=== PATIENT | male | born 1930 | race Caucasian/White ===

== ENCOUNTER 2016-11-20 06:27 | Inpatient (IN) | payer OTHER ==
--- NOTE | 2016-11-02 12:50 | HISTORY & PHYSICAL EXAMINATION ---
DATE OF ADMISSION: 11/20/2016 PROCEDURE: Right total knee replacement. HISTORY OF PRESENT ILLNESS: Prakash is an 86-year-old male who presents for preoperative evaluation prior to right knee replacement. He was initially scheduled to have his right knee replacement done in September 2015, however, sustained a mini stroke at that point and surgery had to be postponed. At this point in time he has been seen by his family physician as well as neurology and has been cleared for his upcoming surgery as long as bridged with Lovenox and Coumadin. He states he has been having pain in this knee for several years now, which has gradually worsened, he has tried previous cortisone injections as well as viscosupplementation without relief. He has done physical therapy, taken oral anti-inflammatories including Advil and Celebrex, which is now limited due to the Coumadin. At this point in time he has failed conservative measures and after obtaining medical and neurological clearance the patient would like to proceed with a right knee replacement. PAST MEDICAL HISTORY: 1. Cardiovascular disease. 2. BPH. 3. Allergic rhinitis. 4. GERD. 5. Dry eye syndrome. 6. History of arterial stenosis. 7. Spinal stenosis. 8. Diverticulitis. 9. Irritable bowel syndrome. 10. Hypertension. 11. Anxiety. 12. History of CVA. ALLERGIES: 1. TYLENOL WITH CODEINE, CAUSES HIM TO FEEL LIKE HE IS CLIMBING ON THE FISHMAN. CURRENT MEDICATIONS: 1. Lorazepam 1 mg 1/2-1 tablet at bedtime as needed. 2. Atorvastatin 10 mg daily. 3. Fluoxetine 40 mg daily. 4. Pantoprazole 40 mg daily. 5. Coumadin 4 mg on Saturday, Saturday, Saturday, Saturday and Saturday; 2 mg on Tuesdays and . 6. Polytrim 1 drop right eye 4 times a day. 7. [place] 10/325 one tablet every 6 hours as needed for pain. PAST SURGICAL HISTORY: 1. History of bilateral shoulder arthroscopies in the past. 2. Hemorrhoidectomy. FAMILY HISTORY: Noncontributory. SOCIAL HISTORY: The patient is retired and lives in a 2-story home with his . Denies a history of smoking or tobacco use. REVIEW OF SYSTEMS: Otherwise negative. Please see HPI for pertinent positives. PHYSICAL EXAMINATION: GENERAL: Pleasant, cooperative 86-year-old male in no acute distress, alert and oriented x3. He is 5 foot 6, weight 190 pounds. VITAL SIGNS: Blood pressure is 116/68, pulse 76, O2 sat 94%. HEENT: Normocephalic, atraumatic. CARDIAC: Regular rate and rhythm. No murmurs or gallops appreciated. Resting pulse 76 beats per minute. LUNGS: Clear to auscultation without rales or wheezes bilaterally. ABDOMEN: Soft, nontender. Bowel sounds present. EXTREMITIES: Attention to his right lower extremity is neurovascularly intact. Calves are soft and nontender. DP pulse +2. Demonstrates good quad tone. Straight leg raise without lag. There is no erythema or warmth. Has mild effusion. Range of motion is 0/5/110. Positive crepitation with motion. Knee is ligamentously stable. IMAGING: Reviewed of his right knee shows findings consistent with end-stage DJD with joint space narrowing, subchondral sclerosis and osteophyte formation noted. EKG performed 11/22/2015 showed sinus rhythm, low voltage in precordial leads with a rate of 71 beats per minute. IMPRESSION: 1. Right knee degenerative joint disease. 2. History of cerebrovascular accident, transient ischemic attacks. He is stable on Coumadin, would need Lovenox bridging for right total knee arthroplasty and has been cleared by neurology if they proceed with surgery. 3. Hypertension. 4. Chronic kidney disease, stage 3, advised to avoid nonsteroidal antiinflammatory drugs and has upcoming appointment with nephrology. 5. History of prostate cancer. 6. Gastroesophageal reflux disease. 7. High cholesterol. PLAN: Further care discussed with patient. At this point in time, has failed conservative measures and would like to proceed with a right knee replacement. Discussed all the risks and benefits of the procedure, he would like to proceed. Will likely need rehab versus group home facility upon discharge. Will discuss with social work specialist once inpatient.
--- NOTE | 2016-11-02 14:01 | PAT Medication Instructions ---
Service Date Nov 02, 2016. Current Home Medication List Artificial Tears (Artificial Tears), 1-2 DROPS OP TID Atorvastatin (Lipitor), 10 MG PO HS Fluoxetine (Prozac), 40 MG PO QAM Warfarin Sod (Jantoven), 4 MG PO QPM Warfarin Sod (Jantoven), 2 MG PO 2XWK [Macular ] Medication Instructions For Your Scheduled Surgery - Check with surgeon/prescribing physician for instructions: Warfarin Sod (Jantoven), 4 MG PO QPM Warfarin Sod (Jantoven), 2 MG PO 2XWK - Take the following medications the morning of surgery with a sip of water: Fluoxetine (Prozac), 40 MG PO QAM Artificial Tears (Artificial Tears), 1-2 DROPS OP TID - Take the following medications as scheduled the night before surgery: Atorvastatin (Lipitor), 10 MG PO HS Artificial Tears (Artificial Tears), 1-2 DROPS OP TID If you have any questions please call us at [phone] or [phone] or [phone]
[2016-11-02 14:43] LABS: BASO % 0.1 %; BASO ABS # 0.01 K/uL (0-0.2); COMPLETE YES; EOS % 2.1 %; HEMATOCRIT 38.3 % (42-52); IG% 0.3 %; LYMPH % 9.6 %; LYMPH ABS # 0.68 K/uL (1.2-3.4); MEAN CELL VOLUME 95.5 fL (80-100); MEAN CORPUSCULAR HEMOGLOBIN 31.9 pg (25-34); MEAN CORPUSCULAR HGB CONC 33.4 g/dl (32-36); NEUT % 74.9 %; PLATELET COUNT 214 K/uL (130-400); RED BLOOD COUNT 4.01 M/uL (4.7-6.1); WHITE BLOOD COUNT 7.08 K/uL (4.8-10.8)
[2016-11-02 14:52] LABS: INR 1.8 (0.9-1.1); PARTIAL THROMBOPLASTIN RATIO 1.6; PROTHROMBIN TIME (PATIENT) 19.3 SECONDS (9.0-12.0)
[2016-11-02 15:00] LABS: BUN/CREATININE RATIO 17.2 (10-20); CREATININE 1.4 mg/dl (0.60-1.40); POTASSIUM 4.1 mmol/L (3.5-5.1)
[2016-11-02 15:07] LABS: CALCIUM 8.6 mg/dl (8.5-10.1)
[2016-11-02 15:11] LABS: URINE APPEARANCE CLEAR (CLEAR); URINE BILIRUBIN NEG (NEG); URINE COLOR YELLOW; URINE NITRITE NEG (NEG); URINE SPECIFIC GRAVITY 1.018 (1.000-1.030); UROBILINOGEN NEG (NEG)
[2016-11-02 15:27] LABS: MANUAL MICROSCOPIC REQUIRED? NO; REVIEW REQ? NO
[2016-11-02 15:47] LABS: ESTIMATED AVERAGE GLUCOSE 151 mg/dl; HA1C FLAG Normal (Normal)
[~2016-11-20] VITALS: Ht 165.1 cm; Wt 82.3 kg
[2016-11-20] VITALS (9 sets, daily range): BP systolic 97–138; BP diastolic 53–82; PULSE 58–83; TEMP 36.2–37; O2SAT 92–97; Ht 165.1 cm; Wt 82.3 kg
[~2016-11-20 06:27] MED LIST: ACETAMINOPHEN 500 MG TAB PO SCH; ATOR10TA82 PO; CEFAZOLIN 2000 MG/60 ML D5W 60 ML IV SCH; CeleBREX 200 MG CAP PO SCH; DEXAMETHASONE 4 MG TAB PO SCH; FAMOTIDINE 20 MG TAB PO SCH; FLUO40CA8 PO; GABAPENTIN 300 MG CAP PO SCH; LACTATED RINGER'S 1000ML 1,000 ML IV SCH; LACTATED RINGER'S 1000ML IV SCH; METOCLOPRAMIDE HCL 10 MG TAB PO SCH; POLY99.02 OP; ROPIVACAINE 5MG/ML 30 ML 150 MG, BUPIVACAINE/EPINEPHR 0.5% MPF 30 ML, KETOROLAC TROMETH... INFIL SCH; WARF4TAB8 PO
--- NOTE | 2016-11-20 06:53 | History & Physical Bridge Note ---
H&P Re-Evaluation Bridge Note: I have examined the patient, reviewed the History & Physical and in the interval since the performance of the History & Physical I have noted the following changes of clinical significance: No changes noted
[2016-11-20] MEDS ORDERED: BUPIVACAINE 0.25% 30 ML VIAL ONE (07:02)
[2016-11-20] MEDS ORDERED: BUPIVACAINE 0.5 % 5 MG/1 ML PF 10ML VIAL ONE (07:02)
[2016-11-20] MEDS ORDERED: POVIDONE-IODINE OP SOLN 30 ML BTL ONE (07:10)
[2016-11-20] MEDS ORDERED: BACITRACIN 50000 UNIT VIAL ONE (07:10)
[2016-11-20] MEDS ORDERED: ORTHO JOINT ANESTHETIC ONE (07:10)
[2016-11-20] MEDS ORDERED: MIDAZOLAM HCL 1 MG/ML 2ML VIAL ONE (07:12)
[2016-11-20] MEDS ORDERED: FENTANYL CITRATE INJ 50 MCG/1 ML 2 ML VIAL ONE (07:13)
[2016-11-20 07:31] LABS: PROTHROMBIN TIME (PATIENT) 10.5 SECONDS (9.0-12.0)
[2016-11-20] MEDS ORDERED: LACTATED RINGER'S 1000ML 1,000 ML IV PRN (07:38)
[2016-11-20] MEDS ORDERED: ONDANSETRON INJ 2 MG/ML 2 ML VIAL IV PRN ×2 (07:45→10:00)
[2016-11-20] MEDS ORDERED: FENTANYL CITRATE INJ 50 MCG/1 ML 2 ML VIAL IV PRN (07:45)
[2016-11-20] MEDS ORDERED: PHENYLEPHRINE 100MCG/ML 5ML SYR ONE (07:58)
[2016-11-20] MEDS ORDERED: EpHEDrine SULFATE 50MG/5ML SYR ONE (08:41)
--- NOTE | 2016-11-20 09:22 | [facility] Post Operative Brief Note ---
Immediate Operative Summary Operative Date Nov 20, 2016. Pre-Operative Diagnosis Right knee degenerative joint disease Post-Operative Diagnosis Right knee degenerative joint disease Procedure(s) Performed Right total knee arthroplasty Surgeon Dr. Morfin Therapy Administrative Assistant Surgeon(s) Wil Lundy PA-C Estimated Blood Loss 5ml Findings severe djd rt knee Specimens A. Right knee bone and tissue Complication(s) None Disposition Recovery Room / PACU
--- NOTE | 2016-11-20 09:55 | OPERATIVE REPORT ---
DATE OF OPERATION: 11/20/2016 PREOPERATIVE DIAGNOSIS: Severe end-stage tricompartmental degenerative joint disease, right knee. POSTOPERATIVE DIAGNOSIS: Same. PROCEDURE: Right total knee arthroplasty utilizing Reyes & Nephew Journey II nonblock total knee arthroplasty, size 7 femur, 7 tibia, 9 poly, and 35 oval patella. SURGEON: Dr. Yaakov Morfin. WATER ANALYST: Wil Lundy, who was necessary for prepping, draping, retraction, wound closure of deep fascia, subQ and skin and was necessary for the case. COMPLICATIONS: None. TOURNIQUET TIME: 45 minutes. ESTIMATED BLOOD LOSS: 5 mL. HISTORY: The patient presents as a very pleasant 86-year-old white male being seen and evaluated with complaints of severe endstage DJD about his right knee. He has failed attempts of conservative management including injections, anti-inflammatories, relative rest, activity modification, and bracing. After thorough discussion regarding risks and complications, decision was made to proceed forward with total knee arthroplasty. DESCRIPTION OF PROCEDURE: The patient was properly prepped and draped in supine position for total knee arthroplasty after identifying the appropriate surgical site. An anterior midline incision was made through the subcutaneous tissues down to the region of the extensor mechanism. A medial parapatellar incision was subsequently made. Meticulous hemostasis was obtained and performed at all times. The patella having been subluxed lateralward, medial and lateral meniscal remnants were excised. The patellar cut was then initially made and was sized to the appropriate size. After subluxing the tibia forward the appropriate meniscal fragments having been removed the distal femur was then cut first utilizing a Reyes and Nephew block. The distal femoral cuts and chamfer cuts were all made under direct visualization and the proximal tibial osteotomy cut was also made utilizing Reyes and Nephew blocks and checked with an extramedullary guide. The appropriate trial components on the femur and tibia were placed. Appropriate trial spacers were used to check flexion and extension gaps. With flexion and extension gaps being equal, the components were then subsequently after thorough irrigation and debridement lavage components were then subsequently cemented in the following order: femur, tibia and patella. Exparel was used for intraoperative anesthesia, the medial parapatellar incision was closed utilizing #1 Vicryl, subQ was closed with 2-0 Vicryl, skin was closed with skin clips. A sterile compression dressing was placed. The patient was taken to recovery room in stable condition. Due to the complex nature of the procedure, the entire surgery was performed with the operational assistance of Wil Lundy PA-C. The daycare assistant, under direct supervision, was involved in the actual performance of all aspects of the surgical procedure including hemostasis, tissue retraction and incision, instrument management, patient positioning, and wound closure. I attest to the content of the Intraoperative Record and any orders documented therein. Any exception s are noted below.
[2016-11-20] MEDS ORDERED: TRAMADOL HCL 50 MG TAB PO PRN (10:00)
[2016-11-20] MEDS ORDERED: OXYCODONE HCL IR 5 MG TAB (IMMEDIATE RELEASE) PO PRN (10:00)
[2016-11-20] MEDS ORDERED: BISACODYL 10 MG SUPP PR PRN (10:00)
[2016-11-20] MEDS ORDERED: ALUMINUM/MAGNESIUM/SIMETH (MAALOX MAX) 30 ML UDC PO PRN (10:00)
[2016-11-20] MEDS ORDERED: MoRPHine SULFATE 2 MG/ML CARP IV PRN (10:00)
[2016-11-20] MEDS ORDERED: MAGNESIUM HYDROXIDE SUSP 30 ML UDC PO PRN (10:00)
[2016-11-20] MEDS ORDERED: TAMSULOSIN HCL 0.4 MG CAP PO PRN (10:00)
--- NOTE | 2016-11-20 10:30 | DIAGNOSTIC IMAGING REPORT ---
PORTABLE RIGHT KNEE 2 VIEWS CLINICAL HISTORY: Postop examination COMPARISON: None. DISCUSSION: There are postsurgical changes of a total right knee arthroplasty and patellar resurfacing. The femoral and tibial components appear well seated. Overlying surgical drains are evident. There is air in the soft tissues consistent with recent surgery. IMPRESSION: Postsurgical changes of a total right knee arthroplasty. Electronically signed by: Real Biggs M.D. 11/20/2016 10:29 AM Dictated Date/Time: 11/20/2016 10:28 AM
--- NOTE | 2016-11-20 10:51 | Anesthesiology Progress Note ---
Anesthesia Post Op Note Date & Time Nov 20, 2016 at 10:50 Vital Signs Pain Intensity: 0 Vital Signs Past 12 Hours Date Time Temp Pulse Resp B/P (MAP) Pulse Ox O2 Delivery O2 Flow Rate FiO2 11/20/16 10:35 66 16 114/70 95 Nasal Cannula 2 11/20/16 10:25 36.3 59 16 116/69 94 Nasal Cannula 2 11/20/16 10:15 59 16 112/70 100 Nasal Cannula 2 11/20/16 10:05 58 15 120/64 100 Mask 8 11/20/16 09:57 36 62 16 107/64 100 Mask 8 11/20/16 06:57 37 83 18 138/82 93 Room Air Notes Mental Status: alert / awake / arousable, participated in evaluation Pt Amnestic to Procedure: Yes Nausea / Vomiting: adequately controlled Pain: adequately controlled Airway Patency, RR, SpO2: stable & adequate BP & HR: stable & adequate Hydration State: stable & adequate Neuraxial Anesthesia: was administered, sensory block is resolving Anesthetic Complications: no major complications apparent
[2016-11-20] MEDS: D5W AND 1/2NSS + 20MEQ KCL 1,000 ML IV SCH ×2 (11:33→21:12)
[2016-11-20] MEDS: FERROUS GLUCONATE 324 MG TAB PO SCH ×2 (12:47→17:53)
[2016-11-20] MEDS: ARTIFICIAL TEARS OP SOLN OP SCH ×4 (13:45→21:12)
[2016-11-20] MEDS: ACETAMINOPHEN 500 MG TAB PO SCH ×2 (13:45→21:14)
[2016-11-20] MEDS: CEFAZOLIN IV 2,000 MG in DEXTROSE 5% 50ML 50 ML IV SCH (15:12)
[2016-11-20] MEDS ORDERED: WARFARIN SOD 5 MG TAB PO ONE (16:00)
[2016-11-20] MEDS: SENNA 8.6 MG TAB PO SCH (21:00)
[2016-11-20] MEDS: ATORVASTATIN 10 MG TAB PO SCH (21:12)
[2016-11-20] MEDS: DOCUSATE SODIUM 100 MG CAP PO SCH (21:13)
[2016-11-20] MEDS ORDERED: NURSING VERBAL MED ORDER ONE (22:30)
[2016-11-20] MEDS: FLUOXETINE HCL 20 MG CAP PO SCH (22:42)
[2016-11-21] MEDS: CEFAZOLIN IV 2,000 MG in DEXTROSE 5% 50ML 50 ML IV SCH ×2
[2016-11-21 04:00] VITALS: BP 109/60; PULSE 63; TEMP 36.4; O2SAT 95
[2016-11-21] MEDS: ACETAMINOPHEN 500 MG TAB PO SCH ×3 (05:12→20:36)
[2016-11-21 06:45] LABS: HEMATOCRIT 26.2 % (42-52); MEAN CELL VOLUME 93.9 fL (80-100); MEAN CORPUSCULAR HGB CONC 35.1 g/dl (32-36); PLATELET COUNT 169 K/uL (130-400); RED BLOOD COUNT 2.79 M/uL (4.7-6.1)
[2016-11-21 06:52] LABS: PROTHROMBIN TIME (PATIENT) 11.2 SECONDS (9.0-12.0)
[2016-11-21 07:21] LABS: BUN/CREATININE RATIO 17.8 (10-20); CALCIUM 7.6 mg/dl (8.5-10.1); POTASSIUM 4.5 mmol/L (3.5-5.1)
[2016-11-21] MEDS: D5W AND 1/2NSS + 20MEQ KCL 1,000 ML IV SCH (07:46)
[2016-11-21 07:53] VITALS: BP 110/66; PULSE 65; TEMP 36.6; O2SAT 94
--- NOTE | 2016-11-21 07:53 | Orthopedic Progress Note ---
Orthopedic Progress Note Date of Service Nov 21, 2016. Subjective Post OP Day: 1 Reports: feeling well, Denies: chest pain, SOB, nausea / vomiting, light headedness, calf pain Additional Notes: Pt very hard of hearing. No complaints. States he's been up to the BR with help several times during the night. Pain controlled currently. Objective calves soft nontender, N/V intact, dressing C/D/I, A&O x3, toes mobile Date Time Temp Pulse Resp B/P (MAP) Pulse Ox O2 Delivery O2 Flow Rate FiO2 11/21/16 04:00 36.4 63 18 109/60 (76) 95 Nasal Cannula 2.0 11/21/16 00:04 Room Air 11/20/16 22:55 36.6 64 18 103/53 (70) 96 Nasal Cannula 2.0 11/20/16 19:35 36.5 66 16 97/60 (72) 94 Nasal Cannula 3.0 11/20/16 15:01 36.2 65 18 99/62 (74) 95 Nasal Cannula 2.5 11/20/16 15:00 Nasal Cannula 2.0 11/20/16 13:54 67 16 100/62 (75) 96 Nasal Cannula 2.0 11/20/16 12:46 66 16 116/71 (86) 92 Nasal Cannula 2.0 11/20/16 11:50 58 16 100/62 (75) 97 Nasal Cannula 2.0 11/20/16 11:17 59 17 100/58 (72) 93 Nasal Cannula 3.0 11/20/16 10:50 36.5 62 18 107/65 (79) 97 Nasal Cannula 2.0 11/20/16 10:50 97 Nasal Cannula 2.0 11/20/16 10:50 Nasal Cannula 2.0 11/20/16 10:35 66 16 114/70 95 Nasal Cannula 2 11/20/16 10:25 36.3 59 16 116/69 94 Nasal Cannula 2 11/20/16 10:15 59 16 112/70 100 Nasal Cannula 2 11/20/16 10:05 58 15 120/64 100 Mask 8 11/20/16 09:57 36 62 16 107/64 100 Mask 8 Laboratory Results 24 Hours: Test 11/21/16 06:26 Hematocrit 26.2 % Hemoglobin 9.2 g/dL Prothromb Time International Ratio 1.0 Prothrombin Time 11.2 SECONDS Assessment & Plan Assessment: POD 1 s/p Right TKA Increase in BUN/Creat PAST MEDICAL HISTORY: 1. Cardiovascular disease. 2. BPH. 3. Allergic rhinitis. 4. GERD. 5. Dry eye syndrome. 6. History of arterial stenosis. 7. Spinal stenosis. 8. Diverticulitis. 9. Irritable bowel syndrome. 10. Hypertension. 11. Anxiety. 12. History of CVA. Plan: Continue IV fluids for now. Follow BMP PT/OT Planning for OPPT vs HH? Will need to discuss further with pt and family. Inhouse Planning Pain Management: Ultram, Morphine, PO Tylenol, Oxy IR DVT Prophylaxis: TEDs, SCDs, Coumadin Discharge Planning Discharge Planning: uncertain Pain Management: PO Tylenol, Oxy IR DVT Prophylaxis: TEDs, Coumadin Therapy: Physical Therapy
[2016-11-21 08:06] VITALS: O2SAT 94
--- NOTE | 2016-11-21 08:39 | Clinical Documentation Query ---
CLINICAL DOCUMENTATION QUERY Dr. HARRINGTON, In your clinical opinion is this patient being managed for: ( ) Acute kidney injury ( x ) Other explanation of clinical findings (Please Explain)chronic kidney disease ( ) Unable to determine (Please Define) ( ) Need to Discuss ( ) Not Agree The medical record reflects the following clinical findings, treatment, and risk factors. Clinical Indicators: 86 yo male presenting with R knee DJD and noted to have Chronic Kidney disease stage III on H/P. Baseline Cr 1.4 on preop labs and has risen to Cr 2.0. Pt noted to have hemovac drainage of 1120 cc and slight hypotension with lowest BP 97/60. Treatment: monitor PRP's, continue IV fluids, I/O Risk Factors: age, preexisting CKD stage III, hemovac blood loss, hypotension, hx of HTN Acute Kidney Injury is defined as any of the following: o Increase in SCr by (>/=) 0.3 mg/dl within 48 hours; or o Increase in SCr to (>/=)1.5 times baseline, which is known or presumed to have occurred within the prior 7 days; or o Urine volume <0.5 ml/kg/h for 6 hours. Please clarify and document your clinical opinion in the progress notes and discharge summary. Terms such as "probable", "suspected", "likely", "questionable", "possible", or "still to be ruled out" are acceptable. IF IN AGREEMENT, YOU MUST DOCUMENT ABOVE DIAGNOSTIC STATEMENT IN DAILY PROGRESS NOTES AND DISCHARGE SUMMARY. This document is not part of the patient's record. Thank You, Sejal De La O, JONAS [phone]
--- NOTE | 2016-11-21 08:41 | Clinical Documentation Query ---
CLINICAL DOCUMENTATION QUERY Dr. TAYLOR, In your clinical opinion is this patient being managed for: ( ) Acute kidney injury ( ) Other explanation of clinical findings (Please Explain) ( ) Unable to determine (Please Define) ( ) Need to Discuss ( ) Not Agree The medical record reflects the following clinical findings, treatment, and risk factors. Clinical Indicators: 86 yo male presenting with R knee DJD and noted to have Chronic Kidney disease stage III on H/P. Baseline Cr 1.4 on preop labs and has risen to Cr 2.0. Pt noted to have hemovac drainage of 1120 cc and slight hypotension with lowest BP 97/60. Treatment: monitor PRP's, continue IV fluids, I/O Risk Factors: age, preexisting CKD stage III, hemovac blood loss, hypotension, hx of HTN Acute Kidney Injury is defined as any of the following: o Increase in SCr by (>/=) 0.3 mg/dl within 48 hours; or o Increase in SCr to (>/=)1.5 times baseline, which is known or presumed to have occurred within the prior 7 days; or o Urine volume <0.5 ml/kg/h for 6 hours. Please clarify and document your clinical opinion in the progress notes and discharge summary. Terms such as "probable", "suspected", "likely", "questionable", "possible", or "still to be ruled out" are acceptable. IF IN AGREEMENT, YOU MUST DOCUMENT ABOVE DIAGNOSTIC STATEMENT IN DAILY PROGRESS NOTES AND DISCHARGE SUMMARY. This document is not part of the patient's record. Thank You, Sejal De La O, JONAS [phone]
[2016-11-21] MEDS: ARTIFICIAL TEARS OP SOLN OP SCH ×6 (08:42→20:36)
[2016-11-21] MEDS: FERROUS GLUCONATE 324 MG TAB PO SCH ×3 (08:42→18:37)
[2016-11-21] MEDS: MULTIVITAMIN TAB PO SCH (08:43)
[2016-11-21] MEDS: PANTOprazole SOD 40 MG TAB PO SCH (08:43)
[2016-11-21] MEDS: DOCUSATE SODIUM 100 MG CAP PO SCH ×2 (08:43→20:36)
[2016-11-21] MEDS ORDERED: FLUOXETINE HCL 20 MG CAP PO SCH (09:00)
[2016-11-21 11:33] VITALS: BP 120/66; PULSE 69; TEMP 36.4; O2SAT 92
--- NOTE | 2016-11-21 13:40 | Discharge Instructions ---
Discharge Instructions Date of Service Nov 21, 2016. Admission Reason for Admission: Right Knee Arthritis Discharge Discharge Diagnosis / Problem: right total knee replacement Discharge Goals Goal(s): Decrease discomfort, Improve function, Increase independence Activity Recommendations Activity Limitations: as noted below Weightbearing Status: Right weightbearing (as tolerated) . Instructions / Follow-Up Instructions / Follow-Up ACTIVITY RECOMMENDATIONS: SELF CARE INSTRUCTIONS AFTER TOTAL KNEE REPLACEMENT A. You may need to continue a physical therapy program after discharge from the hospital. There are several options available to you. Your doctor will assist you in selecting the best one for you. 1. An out-patient facility 2 to 3 times a week for therapy or home therapy. 2. Continue working on all exercises taught to you in the hospital. Your goals should be to increase bending of your knee to 90 degrees and beyond and to fully straighten your knee. B. You may progress at your own pace from walking with a walker or crutches to a cane; then to no assistive devices. C. Make walking a part of your daily routine. Be up as much as comfortable with rest periods throughout the day. Rest with leg elevation is very important. Use the ice wrap frequently for the first 3-4 weeks. D. There are no restrictions on activities. You may ride in a car, shop, participate in inspector final assembly electrical and all social activities. E. Wear the long elastic stockings (CHAVEZ hose) 20 hours a day for 2 weeks after surgery. They can be removed several times a day for laundering and for a bath. F. You may shower, no tub baths until cleared by your doctor. SPECIAL CARE INSTRUCTIONS: VERY IMPORTANT TO READ AND REVIEW A. There are a few signs you need to watch for after you are home. Call [facility] if you notice any of the followin. Increased severe knee pain. Some pain is expected especially when you exercise. 2. Increased swelling in your leg or knee; pain or swelling of the calf muscle in either lower leg. 3. Any fluid drainage from the incision. 4. Shortness of breath or chest pain. B. Please call [facility] at if you have any concerns or questions about your operation or recovery. The doctor or his nurse will return your call promptly. C. You must take antibiotics before dental work, bladder, bowel or other surgery. Your doctor will provide you with a permanent care to carry describing this precaution. IMPORTANT: * REMEMBER TO TAKE ASPIRIN, 81 MG, TWICE DAILY FOR 4 WEEKS UNLESS OTHERWISE DIRECTED. THIS IS YOUR BLOOD THINNER. * HIGH RISK PATIENTS MAY BE PRESCRIBED A STRONGER BLOOD THINNER. THIS WILL BE PROVIDED AT DISCHARGE. * CALL IF INCREASED PAIN, REDNESS, DRAINAGE OR FEVER GREATER THAT 101. * WEAR CHAVEZ HOSE 20 HOURS PER DAY FOR 2 WEEKS. * YOU MAY HAVE A LARGE BAND-AID LIKE DRESSING (SILVERON). THIS WILL REMAIN ON YOUR INCISION FOR 7 DAYS, THEN CAN BE REMOVED. IF INCISION IS LEAKING THROUGH DRESSING, CALL THE OFFICE . DERMABOND Prineo- This is a mesh tape dressing that is covered with glue. It should remain in place until the incision is properly healed, usually 10-14 days. This dressing is designed to naturally slough off. You may trim the excess mesh tape as it peels off. Incision may be briefly wet in a shower. Dry immediately by blotting with a clean, dry towel. Do not bath or swim until instructed by your doctor. Do not scratch, rub, or pick at the dressing. Do not apply any topical ointments or lotions until dressing is completely removed and/or instructed by your doctor. There may be a small piece of suture material at one end of your incision. Do not pull or trim this. If it is bothersome or catching on clothing, you may cover it with a band-aid. Prevena- This is a large suction dressing covering your incision. This will help pull any excess drainage from the wound and allow your incision to heal properly. You may shower with this if you can keep the unit outside of the shower. If any bleeding or leakage is noted please call your doctor's office. This will remain on your incision for 7 days and then should be removed. This can be done yourself or by the home nursing staff if applicable. The entire unit is disposable once removed. Once removed, keep incision clean and dry. If redness or drainage is noted, please call your surgeon. FOLLOW UP VISIT: If appointment is not already scheduled: Please call [facility] to make a follow-up appointment for 2 weeks after your surgery at . Current Hospital Diet Patient's current hospital diet: Regular Diet Discharge Diet Recommended Diet: Regular Diet Procedures Procedures Performed: Right total knee arthroplasty Pending Studies Studies pending at discharge: no Laboratory Results Hemoglobin A1c Test 11/02/16 14:14 Range/Units Estimated Average Glucose 151 mg/dl Hemoglobin A1c 6.9 H 4.5-5.6 % Medical Emergencies . Who to Call and When: Medical Emergencies: If at any time you feel your situation is an emergency, please call 911 immediately. . Non-Emergent Contact Non-Emergency issues call your: Primary Care Provider, Surgeon . "Provider Documentation" section prepared by Houston Meng. . VTE Core Measure Inpt VTE Proph given/why not?: Sharlene Shields, SCD's [place] Drug Monitoring Program Search Results: patient reviewed within database, no issues identified
[2016-11-21 15:41] VITALS: BP 93/55; PULSE 74; TEMP 36.7; O2SAT 93
[2016-11-21] MEDS ORDERED: WARFARIN SOD 5 MG TAB PO SCH (16:00)
[2016-11-21] MEDS ORDERED: NURSING VERBAL MED ORDER ONE (18:30)
[2016-11-21] MEDS: SODIUM CHLORIDE 0.9% 1000ML 1,000 ML IV SCH (18:37)
[2016-11-21] MEDS: DiphenhydrAMINE 2%/ZINC 0.1% CREAM 28GM TUBE EXT SCH (20:33)
[2016-11-21] MEDS: FLUOXETINE HCL 20 MG CAP PO SCH (20:35)
[2016-11-21] MEDS: ATORVASTATIN 10 MG TAB PO SCH (20:36)
[2016-11-21] MEDS: SENNA 8.6 MG TAB PO SCH (20:36)
[2016-11-21 23:10] VITALS: BP 105/63; PULSE 64; TEMP 36.6; O2SAT 98
[2016-11-22] MEDS: SODIUM CHLORIDE 0.9% 1000ML 1,000 ML IV SCH ×2 (03:14→12:44)
[2016-11-22] MEDS: DiphenhydrAMINE 2%/ZINC 0.1% CREAM 28GM TUBE EXT SCH ×2 (04:20→08:07)
[2016-11-22] MEDS: ACETAMINOPHEN 500 MG TAB PO SCH (05:45)
[2016-11-22 06:56] VITALS: BP 96/62; PULSE 75; TEMP 36.6; O2SAT 95
[2016-11-22 07:41] VITALS: BP 120/70; PULSE 73; TEMP 36.4; O2SAT 95
[2016-11-22] MEDS: ARTIFICIAL TEARS OP SOLN OP SCH ×2 (08:03)
[2016-11-22] MEDS: FERROUS GLUCONATE 324 MG TAB PO SCH ×2 (08:05→12:30)
[2016-11-22] MEDS: PANTOprazole SOD 40 MG TAB PO SCH (08:05)
[2016-11-22] MEDS: DOCUSATE SODIUM 100 MG CAP PO SCH (08:05)
[2016-11-22] MEDS: MULTIVITAMIN TAB PO SCH (08:05)
[2016-11-22 08:21] VITALS: O2SAT 95
[2016-11-22 09:09] LABS: BUN/CREATININE RATIO 18.2 (10-20); CREATININE 1.8 mg/dl (0.60-1.40)
[2016-11-22 09:13] VITALS: BP 100/63; PULSE 70; O2SAT 98
--- NOTE | 2016-11-22 11:19 | Orthopedic Progress Note ---
Orthopedic Progress Note Date of Service Nov 22, 2016. Subjective Post OP Day: 2 Reports: feeling well (Pt very hard of hearing) Objective N/V intact, dressing C/D/I, toes mobile Date Time Temp Pulse Resp B/P (MAP) Pulse Ox O2 Delivery O2 Flow Rate FiO2 11/22/16 08:21 95 Room Air 11/22/16 07:41 36.4 73 22 120/70 (87) 95 Room Air 11/22/16 07:15 Room Air 11/22/16 06:56 36.6 75 18 96/62 (73) 95 Room Air 11/21/16 23:10 36.6 64 18 105/63 (77) 98 Room Air 11/21/16 19:45 Room Air 11/21/16 15:41 36.7 74 16 93/55 (68) 93 Room Air 11/21/16 11:33 36.4 69 20 120/66 (84) 92 Room Air Additional Notes: BUN/Cr improving, good UO Assessment & Plan Assessment: POD 2 s/p Right TKA Improving BUN/Creat PAST MEDICAL HISTORY: 1. Cardiovascular disease. 2. BPH. 3. Allergic rhinitis. 4. GERD. 5. Dry eye syndrome. 6. History of arterial stenosis. 7. Spinal stenosis. 8. Diverticulitis. 9. Irritable bowel syndrome. 10. Hypertension. 11. Anxiety. 12. History of CVA. Plan: DVT prophylaxis- resume regular Coumadin use, SCDs PT/OT D/C home- planning for HH Inhouse Planning Pain Management: Ultram, Morphine, PO Tylenol, Oxy IR DVT Prophylaxis: TEDs, SCDs, Coumadin Discharge Planning Discharge Planning: uncertain Pain Management: PO Tylenol, Oxy IR DVT Prophylaxis: TEDs, Coumadin Therapy: Physical Therapy
[2016-11-22] MEDS ORDERED: ULT50X PO (11:23)
[2016-11-22] MEDS ORDERED: RXC5 PO (11:23)
[2016-11-22] MEDS ORDERED: ACET-24 PO (11:23)
[2016-11-22 11:55] VITALS: BP 120/76; PULSE 72; TEMP 36.3; O2SAT 96
[2016-11-22 14:01] VITALS: BP 120/76; PULSE 72; TEMP 36.3; O2SAT 96
[2016-11-22 14:32] LABS: INR 1.1 (0.9-1.1); PROTHROMBIN TIME (PATIENT) 12.1 SECONDS (9.0-12.0)
--- NOTE | 2016-11-26 11:34 | DISCHARGE SUMMARY ---
DISCHARGE DIAGNOSIS: Degenerative joint disease, right knee. SECONDARY DIAGNOSES: Cardiovascular disease, benign prostatic hypertrophy, allergic rhinitis, gastroesophageal reflux disease, dry eye syndrome, history of arterial stenosis, spinal stenosis, diverticulitis, irritable bowel syndrome, hypertension, anxiety, history of cerebrovascular accident. CONSULTS: None. COMPLICATIONS: None. PROCEDURES: Right total knee arthroplasty performed by Dr. Morfin on 11/20/2016. BRIEF HISTORY: As dictated in history and physical. HOSPITAL SUMMARY: The patient was admitted on the above date and had the above-noted surgery performed which he tolerated well. On his first postoperative day, he was feeling well and he had denied chest pain, shortness of breath, nausea, vomiting, lightheadedness or calf pain. He was very hard of hearing. He had no complaints. He had been up to the bathroom with help several times during the night. Pain was controlled. Calves were soft and nontender, neurovascularly intact. Dressings clean, dry and intact. Toes were mobile. Vital signs were stable. He was afebrile and hemoglobin was 9.2. He was started on his physical therapy protocol and plans were for either outpatient PT versus home health services. It was noted that his BUN and creatinine had bumped up slightly and IV fluids were continued during this time. By his second postoperative day, he was feeling well. Neurovascularly was intact. Dressings were clean, dry and intact. Toes were mobile. Vital signs were stable. He was afebrile. His BUN and creatinine were improving and good urine output. He was progressing with his physical therapy and it was felt that he could be discharged to home. For further review, please see chart. LAB AND X-RAY DATA: As per chart. DISCHARGE INSTRUCTIONS: The patient was discharged to home in satisfactory condition on 11/22/2016. DIET: Regular. ACTIVITY: Follow [facility] instruction sheets and special care instructions as noted, weightbearing as tolerated right lower extremity. Follow-up appointment with Dr. Morfin in 2 weeks. The patient to call for appointment if one has not been made for you. DISCHARGE MEDICATIONS: Acetaminophen 1000 mg p.o. q. 8 hours, oxycodone 5-10 mg p.o. q. 4-6 hours p.r.n., tramadol 50-100 mg p.o. q. 4-6 hours p.r.n. Resume Artificial Tears 1-2 drops OP t.i.d., atorvastatin 10 mg p.o. at bedtime, Prozac 40 mg p.o. q.a.m., warfarin 4 mg p.o. q.p.m. intermixed with warfarin 2 mg p.o. 2 times a week and patient are essentially to resemble his regular warfarin schedule.
== END 2016-11-22 15:02 | disposition home health service (06) | DRG 470 ==
LOC: C.ACU 06:27 → C.3E 06:30 → ENRESERV 10:22
PROVIDERS: ADMIT Orthopaedic Surgery; ATTEND Orthopaedic Surgery
PROC: 0SRC0J9 Replacement of Right Knee Joint with Synthetic Substitute, Cemented, Open Approach (ICD-10-PCS; principal; 2016-11-20 08:00)
DX: M17.11 Unilateral primary osteoarthritis, right knee (principal); I47.1 Supraventricular tachycardia; N18.3 Chronic kidney disease, stage 3 (moderate); N40.0 Benign prostatic hyperplasia without lower urinary tract symptoms; J44.9 Chronic obstructive pulmonary disease, unspecified; K21.9 Gastro-esophageal reflux disease without esophagitis; F41.9 Anxiety disorder, unspecified; J30.9 Allergic rhinitis, unspecified; H04.129 Dry eye syndrome of unspecified lacrimal gland; I25.10 Atherosclerotic heart disease of native coronary artery without angina pectoris; I35.1 Nonrheumatic aortic (valve) insufficiency; E66.9 Obesity, unspecified; G47.33 Obstructive sleep apnea (adult) (pediatric); E11.22 Type 2 diabetes mellitus with diabetic chronic kidney disease; I12.9 Hypertensive chronic kidney disease with stage 1 through stage 4 chronic kidney disease, or unspecified chronic kidney disease; H35.30 Unspecified macular degeneration; E78.00 Pure hypercholesterolemia, unspecified; H91.90 Unspecified hearing loss, unspecified ear; Z87.39 Personal history of other diseases of the musculoskeletal system and connective tissue; Z79.01 Long term (current) use of anticoagulants; Z86.79 Personal history of other diseases of the circulatory system; Z86.73 Personal history of transient ischemic attack (TIA), and cerebral infarction without residual deficits; Z79.899 Other long term (current) drug therapy; Z68.30 Body mass index [BMI] 30.0-30.9, adult; Z79.891 Long term (current) use of opiate analgesic